=== PATIENT | male | born 1980 ===

== ENCOUNTER 2018-12-27 11:41 | Emergency (ER) | payer MEDICAID ==
[2018-12-27 12:02] VITALS: BP 129/87; PULSE 64; RESP 18; TEMP 98.3; O2SAT 100
--- NOTE | 2018-12-27 12:16 | C.PDOC ---
History Of Present Illness 38 year old male presents to the ED complaining of headache for one week. Reports pain is in the back of his neck and goes up to his head and down to his shoulders. Reports he does not take pain medications unless they are prescribed by a doctor. Denies any visual changes, sudden headache, thunderclap headache, neck stiffness, weakness, nausea, vomiting or any other symptoms. 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 Time Seen by Provider: 12/27/18 11:51 Chief Complaint (Nursing): Headache History Per: Patient History/Exam Limitations: no limitations Onset/Duration Of Symptoms: Days Current Symptoms Are (Timing): Still Present Quality: "Pain" Preceeding Symptoms: None Associated Symptoms: denies: Photophobia, Nausea, Vomiting, Extremity Weakness Past Medical History Reviewed: Historical Data, Nursing Documentation, Vital Signs Vital Signs: Last Vital Signs Temp 98.3 F 12/27/18 11:49 Pulse 64 12/27/18 11:49 Resp 18 12/27/18 11:49 BP 129/87 12/27/18 11:49 Pulse Ox 100 12/27/18 11:49 Primary Care Provider: FAMILY PROVIDER,NO - Medical History PMH: No Chronic Diseases Surgical History: No Surg Hx Family History: States: No Known Family Hx - Social History Hx Alcohol Use: No Hx Substance Use: No Review Of Systems Except As Marked, All Systems Reviewed And Found Negative. Constitutional: Negative for: Fever, Chills Eyes: Negative for: Vision Change Gastrointestinal: Negative for: Nausea, Vomiting Musculoskeletal: Positive for: Neck Pain Neurological: Positive for: Headache. Negative for: Weakness, Numbness, Dizziness Physical Exam - Physical Exam Appears: Non-toxic, No Acute Distress Skin: Warm, Dry Head: Normacephalic Eye(s): bilateral: PERRL, EOMI Oral Mucosa: Moist Throat: Normal, No Erythema, No Exudate Neck: Normal ROM, Supple, Other (tenderness to B/L trapezius and posterior neck ) Chest: Symmetrical Cardiovascular: Rhythm Regular, No Murmur Respiratory: No Rales, No Rhonchi, No Wheezing, Other (Good air movement, Lungs CTA bilaterally) Pulses: Left Radial: Normal, Right Radial: Normal Neurological/Psych: Oriented x3, Normal Speech, Normal Motor, Normal Sensation, Other (Oriented x3, GCS 15, CN 2-12 intact, 5/5 muscle strength) Gait: Steady ED Course And Treatment O2 Sat by Pulse Oximetry: 100 (RA) Pulse Ox Interpretation: Normal Medical Decision Making Medical Decision Making: Plan - Motrin 800mg PO Pt re-eval: Pt states feeling much better. Denies any [place], n/v, dizziness, or any other complaints. Ambulating around ER without issue. Understands and agrees to immediately return to the ER if [place], n/v, f/c, dizziness, weakness, blurry vision, neck pain, or any other concerning, worsening, new or continued symptoms. Otherwise states will f/u with pcp in 1-2 days. States will call [facility] for appointment. Disposition Counseled Patient/Family Regarding: Diagnosis, Need For Followup - Disposition Referrals: [facility] [Outside] [facility] [Outside] Disposition: HOME/ ROUTINE Disposition Time: 12:14 Condition: STABLE Prescriptions: Ibuprofen [Motrin Tab] 800 mg PO TID PRN #30 tab PRN Reason: Pain, Moderate (4-7) Instructions: Tension Headache (DC) Forms: Gen Discharge Inst Guinean, [facility] [employer] (Guinean), Work Excuse Print Language: M[place]ENEGRIN - POA Present On Arrival: None - Clinical Impression Clinical Impression: Tension headache - Scribe Statement The provider has reviewed the documentation as recorded by the Scribjoseline Payne All medical record entries made by the Bhavyaibe were at my direction and personally dictated by me. I have reviewed the chart and agree that the record accurately reflects my personal performance of the history, physical exam, medical decision making, and the department course for this patient. I have also personally directed, reviewed, and agree with the discharge instructions and disposition.
== END 2018-12-27 12:32 | disposition home or self-care (01) ==
LOC: C.ER 11:41
DX: G44.209 Tension-type headache, unspecified, not intractable (principal)